=== PATIENT | female | born 1985 | race Caucasian/White ===

== ENCOUNTER → 2018-10-10 | Emergency (ER) | payer MEDICAID ==
[2018-10-10] MEDS: DIPHENHYDRAMINE 50 MG INJ IV (23:24)
[2018-10-10] MEDS: SOD CHLORIDE 0.9% 1,000 ML IV (23:24)
[2018-10-10 23:35] LABS: ADD MAN DIFF? NO
[2018-10-10 23:36] LABS: WHITE BLOOD COUNT 9.3 10^3/ul (4.8-10.8)
[2018-10-10 23:36] LABS: BASOPHILS % 0.1 % (0.0-2.0); HEMATOCRIT 34.4 % (37.0-47.0); HEMOGLOBIN 11.3 g/dl (12.0-16.0); LYMPHOCYTES # 0.8 10^3/ul (0.8-2.9); LYMPHOCYTES % 8.2 % (15.0-51.0); MEAN CORPUSCULAR HEMOGLOBIN 28.3 pg (29.0-33.0); MEAN CORPUSCULAR HGB CONC 32.8 g/dl (32.0-37.0); MEAN PLATELET VOLUME 12.5 fl (7.4-10.4); MONOCYTE # 0.1 10^3/ul (0.3-0.9); MONOCYTES % 0.5 % (0.0-11.0); NEUTROPHIL # 8.4 10^3/ul (1.6-7.5); NEUTROPHILS % 90.9 % (39.0-77.0); PLATELET COUNT 225 10^3/UL (140-415); RED CELL DISTRIBUTION WIDTH 13.6 % (11.5-14.5)
[2018-10-10 23:42] LABS: ALANINE AMINOTRANSFERASE 51 IU/L (13-69); ALBUMIN/GLOBULIN RATIO 1.17; ALKALINE PHOSPHATASE 135 IU/L (42-121); ANION GAP 12 (5-13); ASPARTATE AMINO TRANSFERASE 46 IU/L (15-46); BILIRUBIN,INDIRECT 0.3 mg/dl (0-1.1); BILIRUBIN,TOTAL 0.3 mg/dl (0.2-1.3); BLOOD UREA NITROGEN 13 mg/dl (7-20); CALCIUM 9.2 mg/dl (8.4-10.2); CARBON DIOXIDE 25 mmol/L (21-31); CHLORIDE 100 mmol/L (97-110); CREATININE 0.54 mg/dl (0.44-1.00); Estimated GFR > 60 mL/min (>60); LIPASE 38 U/L (23-300); POTASSIUM 4.4 mmol/L (3.5-5.1); SODIUM 137 mmol/L (135-144); TOTAL PROTEIN 7.4 g/dl (6.1-8.1)
[2018-10-10 23:45] LABS: GLUCOSE 456 mg/dl (70-220)
[2018-10-11] MEDS: SOD CHLORIDE 0.9% 1,000 ML IV (01:58)
[2018-10-11] MEDS: INSULIN LISPRO 100 UNIT/ML VIAL SC (02:09)
[2018-10-11] MEDS: FAMOTIDINE 20 MG INJ IV (03:34)
[2018-10-11] MEDS: DIPHENHYDRAMINE 50 MG INJ IV (03:34)
== END | disposition home or self-care (01) ==
LOC: E/R 20:14
DX: E11.65 Type 2 diabetes mellitus with hyperglycemia (principal); D64.9 Anemia, unspecified; I10 Essential (primary) hypertension; J45.909 Unspecified asthma, uncomplicated; Z79.4 Long term (current) use of insulin
CPT/HCPCS: 36415; 80053; 81025; 82962; 83690; 85025; 96372; 96374; 96375; 96376; 99284-25